=== PATIENT | female | born 1990 | race Two or more races ===

== ENCOUNTER 2024-08-29 11:03 | Outpatient (CLI) | payer MEDICAID, SELFPAY ==
[2024-08-29 11:05] VITALS: BP 137/97; PULSE 93; RESP 17; RESP 99; TEMP 36.9
[2024-08-29 11:11] VITALS: BP 139/97; PULSE 93
[2024-08-29 11:23] VITALS: BMI 23.0
[2024-08-29 11:41] VITALS: BP 133/88; PULSE 96
[2024-08-29 12:11] VITALS: BP 0/0
[2024-08-29 12:13] VITALS: BP 122/79; PULSE 100
[2024-08-29 12:21] LABS: Collection Type, Urine Clean Catch; RBC,Urine 0 /hpf (0-3); Squamous Epithelial Cell,Urine 0 /hpf (0-5)
[2024-08-29 12:25] LABS: Basophils % (Auto) 1 % (0-2.5); Eosinophils # (Auto) 0.1 Thou/mm3 (0.0-0.5); Eosinophils % (Auto) 1 % (0-10); Hematocrit 30.8 % (36.0-46.0); Hemoglobin 11.4 g/dL (12.0-16.0); Immature Granulocytes % (Auto) 1 % (0-0); Immature Granulocytes Auto 0.07 Thou/mm3 (0.00-0.00); Lymphocytes % (Auto) 16 % (10-50); Mean Corpuscular Hemoglobin 32.4 pg (25.0-35.0); Mean Corpuscular Volume 88 fL (80-100); Monocytes # (Auto) 0.5 Thou/mm3 (0.0-0.8); Monocytes % (Auto) 8 % (0-12); Neutrophils # (Auto) 4.6 Thou/mm3 (1.8-7.7); Neutrophils % (Auto) 74 % (37-80); Nucleated Red Blood Cell % 0 /100 WBC (0); Platelet Count 174 Thou/mm3 (140-440); Red Blood Count 3.52 Miln/mm3 (4.00-5.20); White Blood Count 6.3 Thou/mm3 (3.6-11.0)
[2024-08-29 12:30] LABS: Bilirubin,Urine Negative (Negative); Blood,Urine Negative (Negative); Clarity,Urine Clear (Clear/Hazy); Color,Urine Colorless (Lt Yel-Yel); Glucose, Urine Negative (Negative); Ketones,Urine Negative (Negative); Leukocyte Esterase,Urine Negative (Negative); Nitrite,Urine Negative (Negative); PH,Urine 6.5 (5.0-7.0); Protein,Urine Negative (Neg - Trace); Specific Gravity,Urine 1.001 (1.001-1.035); Urobilinogen,Urine Negative mg/dL (0.0-1.0); WBC,Urine < 1 /hpf (0-5)
[2024-08-29 12:41] VITALS: BP 125/75; PULSE 87
[2024-08-29 12:54] LABS: Fibrinogen 398 mg/dL (175-375); INR 0.9 (0.9-1.3); Partial Thromboplastin Time 26.5 Seconds (22.0-36.0); Prothrombin Time 9.8 Seconds (9.0-12.2)
[2024-08-29 12:55] LABS: Alanine Aminotransferase 7 U/L (10-49); Albumin, Serum 3.8 gm/dL (3.5-5.0); Albumin/Globulin Ratio 1.7 (1.2-2.2); Alkaline Phosphatase 131 U/L (46-116); Anion Gap 12 (7-16); BUN/Creatinine Ratio 13 Ratio (12-20); Bilirubin,Total 0.3 mg/dL (0.3-1.2); Blood Urea Nitrogen < 5 mg/dL (9-23); Calcium 8.6 mg/dL (8.3-10.6); Calcium (Corrected) 8.8 mg/dL (8.5-10.1); Carbon Dioxide 22.1 mMol/L (20.0-31.0); Chloride 106 mMol/L (98-107); Creatinine (Component) 0.4 mg/dL (0.6-1.3); Estimated Creatinine Clearance 155.3 mL/min (>60); Globulin 2.2 gm/dL (2.3-3.5); Glucose 75 mg/dL (74-106); LDH (Lactate Dehydrogenase) 188 U/L (120-246); Osmolality,Calculated 275 (275-295); Potassium 3.6 mMol/L (3.4-5.1); Sodium 140 mMol/L (136-145); Uric Acid 7.1 mg/dL (3.1-7.8); eGFR > 60 See Note
== END 2024-08-29 13:20 | disposition home or self-care (01) ==
LOC: S4S1 11:03 → S4SX 11:04 → S4NX 13:26 → S4SX 13:28
PROVIDERS: Referring Provider Student in an Organized Health Care Education/Training Program; Visit Provider Student in an Organized Health Care Education/Training Program
DX: Z34.83 Encounter for supervision of other normal pregnancy, third trimester (principal); Z36.89 Encounter for other specified antenatal screening; Z3A.38 38 weeks gestation of pregnancy
CPT/HCPCS: 36415; 59025; 80053; 81001; 83615; 84550; 85025; 85384; 85610; 85730

== ENCOUNTER 2024-09-08 01:16 | Inpatient (IN) | payer MEDICAID, SELFPAY ==
[2024-09-08] VITALS (62 sets, daily range): BP systolic 104–183; BP diastolic 62–100; PULSE 78–131; RESP 16–99; TEMP 36.8–37.1; O2SAT 97–99; BMI 23.0
--- NOTE | 2024-09-08 02:07 | ESHP_ITS ---
Documentation for date of: 09/08/24 OB Labor/Induct. HPI History of Present Illness Chief complaint: CONTRACTIONS AND FLUID LEAKAGE SINCE 22:30 : 5 Term pregnancies: 4 pregnancies: 0 Living children: 4 History of Abortions: Spontaneous and Elective: 0 History of Vaginal deliveries: 4 History of sections: No History of : No ESTRELLITA: 09/08/24 Gestational Age (weeks): 40 History of present illness: 34 YRS G-5, P-4 WITH SROM AND CONTRACTIONS. CERVIX 4 CM ON ADMISSION.. INITIAL BP 140 / 100 AND PULSE IN RANGE 119. PATIENT LAST SEEN HERE AUGUST 29 AND HAD TRANSIENT ELEVATED BP. DENIES DRUG ABUSE OR RECENT FEVER. NO HEADACHES, NO VISUAL COMPLAINTS NOR EPIGASTRIC DISRESS. ON REPEAT BP 121 / 87. DTR 2+ /4, NO CLONUS, NO PEDAL EDEMA History of Present Dating criteria: LMP confirmed by 1st trimester US Adequate Care: Yes Obstetrical complications: none Medical complications: none Labs Labs: Positive: Rubella Titre, Negative: RPR, Hepatitis B, HIV, Ch lamydia, Gonorrhea and Group Beta Strep and Unknown: Herpes Type 1, Herpes Type 2 and Covid-19 Review of Systems Constitutional Constitutional: Reports system reviewed and no additional complaints, except as documented Eyes Eyes: Reports system reviewed and no additional complaints, except as documented Cardiovascular Cardiovascular: Reports as per HPI Respiratory Respiratory: Reports system reviewed and no additional complaints, except as documented Gastrointestinal Gastrointestinal: Reports system reviewed and no additional complaints, except as documented Genitourinary Genitourinary: Reports system reviewed and no additional complaints, except as documented Musculoskeletal Musculoskeletal: Reports as per HPI Integumentary/Breasts Skin/Breast: Reports system reviewed and no additional complaints, except as documented Neurologic Neurologic: Reports system reviewed and no additional complaints, except as documented Endocrine Endocrine: Reports system reviewed and no additional complaints, except as documented Allergic/Immunologic Allergic/Immunologic: Reports system reviewed and no additional complaints, except as documented Past Medical History Family History FAMILY HISTORY: Positive Family Neurologic Problems, Family Psychiatric Problems, Family Respiratory Disorders, Family Cardiac Disorders, Family Gastrointestinal Problems, Family Genitourinary Problems, Family Endocrine Disorders, Family Reproductive Disorders, Family Musculoskeletal Disorders, Family Cancer, Family Surgery and Family Anesthesia Reaction Surgical History SURGICAL: Negative Section Social History SOCIAL: DENIES DRUG USE SUBSTANCE USE: does not use (NONE) HOUSING: Apartment LIVES WITH: Significant Other Travel History EBOLA RISK: No Meds Home Medications and Allergies Home Medications ?Medication ?Instructions ?Recorded ?Confirmed ?Type vits no.124-ferrous fum 1 tab PO QDAY 9 09/08/24 History 27 mg iron-folic acid 800 mcg tablet ( Vitamin) Allergies Allergy/AdvReac Type Severity Reaction Status Date / Time No Known Allergies Allergy Unknown Verified 09/08/24 01:44 OB Exam Physical Exam Vital signs: Pulse BP Pulse Ox 131 H 141/100 H 99 09/08/24 01:50 09/08/24 01:50 09/08/24 02:03 Narrative: WILL GET EKG, UDS FOR EVALUATION OF LABILE BP AND TACHYCARDIA Routine Respiratory Exam Comments: UNLABORED RESPIRATION Routine Cardiovascular Exam Comments: PULSE IN RANGE 100 Detailed Labor and Delivery Exam Dilation (cm): 4 CM Effacement (%): 90% Cervix position: mid station: -1 Consistency: soft Presentation: Vertex Membranes: ruptured Baseline heart rate: 130 monitor accelerations: 15x15 monitor decelerations: None buttermilk drier operator variability: Average (6-10) Contraction frequency (min): 3 TO 5 MIN Contraction duration (sec): 50 TO 60 Tachysystole: No Contraction intensity: Mild Routine Extremities Exam Extremities: Present full ROM, pulses intact and normal capillary refill Routine Back/Spine/Pelvis Exam Back/Spine: Present full ROM Routine Skin Exam Skin: Present intact Routine Neurological Exam Neurological: Present alert, oriented X3 and CN II-XII intact OB Results Impressions Impression: IN LABOR WITH SROM. LABILE BLOOD PRESSURE AND TACHYCARDIA OB Assessment & Plan Assessment and Plan (1) Tachycardia with heart rate 100-120 beats per minute: Status: Acute Additional Plan Additional Plan Comment: LAB INCLUDE UDS, EKG, TSH , CHEM PIH PANEL
[2024-09-08 02:23] LABS: Collection Type, Urine Clean Catch
[2024-09-08 02:34] LABS: Bacteria,Urine Rare; Bilirubin,Urine Negative (Negative); Blood,Urine 3+ (Negative); Clarity,Urine Turbid (Clear/Hazy); Color,Urine Lt-Yellow (Lt Yel-Yel); Glucose, Urine Negative (Negative); Ketones,Urine Negative (Negative); Leukocyte Esterase,Urine Positive (Negative); Nitrite,Urine Negative (Negative); PH,Urine 6.5 (5.0-7.0); Protein,Urine Negative (Neg - Trace); RBC,Urine 34 /hpf (0-3); Specific Gravity,Urine 1.004 (1.001-1.035); Squamous Epithelial Cell,Urine 14 /hpf (0-5); Urobilinogen,Urine Negative mg/dL (0.0-1.0); WBC,Urine 30 /hpf (0-5)
[2024-09-08 02:37] LABS: Basophils % (Auto) 0 % (0-2.5); Eosinophils # (Auto) 0.1 Thou/mm3 (0.0-0.5); Eosinophils % (Auto) 1 % (0-10); Hematocrit 32.9 % (36.0-46.0); Hemoglobin 12.2 g/dL (12.0-16.0); Immature Granulocytes % (Auto) 1 % (0-0); Immature Granulocytes Auto 0.05 Thou/mm3 (0.00-0.00); Lymphocytes # (Auto) 1.5 Thou/mm3 (1.0-4.8); Lymphocytes % (Auto) 20 % (10-50); Mean Corpuscular HGB Conc 37.1 g/dl (31.0-37.0); Mean Corpuscular Hemoglobin 32.6 pg (25.0-35.0); Mean Corpuscular Volume 88 fL (80-100); Monocytes # (Auto) 0.6 Thou/mm3 (0.0-0.8); Monocytes % (Auto) 8 % (0-12); Neutrophils % (Auto) 70 % (37-80); Nucleated Red Blood Cell % 0 /100 WBC (0); Platelet Count 197 Thou/mm3 (140-440); RDW Standard Deviation 41.4 fL (36.4-46.3); Red Blood Count 3.74 Miln/mm3 (4.00-5.20); White Blood Count 7.2 Thou/mm3 (3.6-11.0)
[2024-09-08 03:13] LABS: Fibrinogen 454 mg/dL (175-375); INR 0.9 (0.9-1.3); Prothrombin Time 10.1 Seconds (9.0-12.2)
[2024-09-08 03:17] LABS: Alanine Aminotransferase 7 U/L (10-49); Albumin/Globulin Ratio 1.7 (1.2-2.2); Alkaline Phosphatase 148 U/L (46-116); Anion Gap 12 (7-16); Aspartate Amino Transferase 16 U/L (0-34); BUN/Creatinine Ratio 8 Ratio (12-20); Bilirubin,Total 0.4 mg/dL (0.3-1.2); Blood Urea Nitrogen < 5 mg/dL (9-23); Calcium 8.8 mg/dL (8.3-10.6); Calcium (Corrected) 8.8 mg/dL (8.5-10.1); Carbon Dioxide 23.4 mMol/L (20.0-31.0); Chloride 102 mMol/L (98-107); Creatinine (Component) 0.6 mg/dL (0.6-1.3); Estimated Creatinine Clearance 103.5 mL/min (>60); Globulin 2.4 gm/dL (2.3-3.5); Glucose 112 mg/dL (74-106); Osmolality,Calculated 272 (275-295); Potassium 3.6 mMol/L (3.4-5.1); Sodium 137 mMol/L (136-145); Thyroid Stimulating Hormone 1.78 uIU/mL (0.55-4.78); Total Protein 6.4 gm/dL (5.7-8.2); Uric Acid 8.3 mg/dL (3.1-7.8); eGFR > 60 See Note
--- NOTE | 2024-09-08 03:21 | EKG_ITS ---
[facility] Test Date: 2024-09-08 Pat Name: THALIA HOOKER [facility] Gender[facility] Electrical Wiring Lineman: DICK : 1990 Requested By: Spike Hilton Order Number: [id number] Reading MD: Spike Hilton Measurements Intervals [place] Rate: 113 P: 52 IL: 131 QRS: 50 QRSD: 77 T: 8 QT: 300 QTc: 413 Interpretive Statements SINUS TACHYCARDIA NONSPECIFIC T-WAVE ABNORMALITY ABNORMAL RHYTHM ECG No previous ECG available for comparison /store/S0/[id number]/ecg/[id number].pdf
[2024-09-08 03:45] LABS: Amphetamine/Metham Scrn,Ur OB Negative (Negative); Benzoylecgonine Screen, Ur OB Negative (Negative); Creatinine,Random Urine 20 mg/dL (30-125); Opiate Screen,Urine OB Negative (Negative); Protein Total, Random Urine 19 mg/dL (1-14); THC Screen,Urine OB Negative (Negative)
[2024-09-08 03:59] LABS: Creatine Kinase 42 U/L (34-171); Troponin I < 0.002 ng/mL (0.0-0.045)
[2024-09-08] MEDS: LABETALOL 100 MG TABLET PO (03:59)
--- NOTE | 2024-09-08 04:26 | XR_ITS ---
Examination: Complete OB ultrasound greater than 14 weeks Date and time of exam: September 08, 2024 0730 hours INDICATIONS: Pelvic contractions leaking amniotic fluid today Findings: Viable intrauterine single fetus with single amniotic sac presentation Vertex Cardiac motion 131 BPM Placenta posterior grade 3 Umbilical cord insertion seen Amniotic fluid index 7.0 cm Ovaries obscured by bowel gas. Composite estimated gestational age based on BPD, head circumference, abdominal circumference, femur length is 37 weeks 0 days Estimated weight 3279.5 g. Survey of intracranial anatomy, spinal anatomy, abdominal anatomy, four-chamber heart performed with no abnormalities identified. Impression: Viable intrauterine gestation vertex presentation.
--- NOTE | 2024-09-08 05:06 | PD.LDPN ---
Documentation for date of: 09/08/24 OB Labor Progress Note Pain Control Comments: MATERNAL PULSE IN RANGE 90, EKG SHOWED SINUS TACHYCARDIA. CONTRACTIONS 5 MINUTES APART. FHR = CATEGORY ONE Pelvic Exam Dilation (cm): 4 Effacement (%): 80 station: -3 Amniotic membrane status: Ruptured Contractions Monitor mode: External Contraction frequency: 1-5 Contraction intensity: Moderate Status status: Category l Assessment and Plan Assessment: active labor Plan OB labor note: continuous present management
[2024-09-08] MEDS: RINGERS LACTATED 1000 ML 1,000 ML 100 ML IV (08:02)
[2024-09-08] MEDS: OXYTOCIN in NS 30 units 30 UNIT/500 ML BAG IV (08:22)
--- NOTE | 2024-09-08 10:14 | PD.LDPN ---
Documentation for date of: 09/08/24 OB Labor Progress Note Pelvic Exam Dilation (cm): 5 Effacement (%): 80 station: -2 Amniotic membrane status: Ruptured Contractions Monitor mode: External Contraction frequency: 2-6 Contraction intensity: Mild Status status: Category l Assessment and Plan Comments: I assumed care of June at 0700 this morning. In brief, she is a 34yo with SIUP at 40wk presenting with SROM, 4cm. Upon presentation she had tachycardia, so EKG was performed which showed sinus tachy. She also had a couple mild range bp's so PIH labs were done which were normal with exception of urine p:c 0.95, but was a dirty catch. BP's have since been normotensive with rare mild range. Pitocin was initiated and currently at 4mu. Patient comfortable. Does not desire epidural- all other labors had no pain meds. Cat I FHRT Ctx q3min SCE: 5/80/-2, clear fluid Plan to continue to titrate pitocin per protocol Continue to closely monitor CEFM Safe to proceed Norma Walsh MD
[2024-09-08] MEDS: OXYTOCIN in NS 20 units 20 UNIT/1,000 ML BAG 125 UNIT IV (11:45)
[2024-09-08] MEDS: MISOPROSTOL 200 mCg TABLET 800 MCG PR (11:50)
[2024-09-08] MEDS: METHYLERGONOVINE INJ 0.2 MG/ML VIAL IM (12:00)
[2024-09-08] MEDS: BENZO/LANO/ALOE (Dermoplast) 60 GM CAN 1 SPRAY TOP (12:05)
[2024-09-08] MEDS: IBUPROFEN TAB 400 MG TABLET 800 MG PO (12:10)
--- NOTE | 2024-09-08 12:14 | PD.LDDELS ---
Data (Ramos) Data Hx Section: No : 5 Term: 4 : 0 Livin Abortions: Spontaneous & Theraputic: 0 Delivery Data (Ramos) Labor Data Initiation of labor: Spontaneous Induction/Augmentation Agent: Pitocin ROM date: 09/08/24 ROM time: 00:40 Amniotic membrane rupture type: Spontaneous Amniotic fluid description: Clear Delivery Data Onset of labor date: 09/08/24 Onset of labor time: 10:01 Complete dilation date: 09/08/24 Complete dilation time: 11:33 Silvis delivery date: 09/08/24 delivery time: 11:43 Placenta delivery date: 09/08/24 Placenta delivery time: 11:48 Stage 1 total time: Labor - Stage 1 Duration 1 hours and 32 minutes Delivered by: joseph Delivery nurse: caden Neworn nurse: Dragan Therapy Administrative Assistant at delivery: No Support person(s) at delivery: FOB Delivery Method Delivery method: Normal Vaginal Delivery Presentation: Vertex Anesthesia Type Anesthesia Type: None Placenta Placenta delivery description: Spontaneous Cord blood sent to lab: Yes cord blood collection: Cord Blood Type Episiotomy Episiotomy description: None EBL Estimated blood loss (ml): 300 Umbilical Cord cord description: 3 Vessels Data (Ramos) Data order: 1 Silvis's gender: Female Identification band number: [id number] weight (gms): 3100 g Weight (pounds): 6 lbs and 13.3 ozs Silvis length: 52 cm 1 minute: 9 5 minutes: 9 Additional Comments Additional comments: Wendi is a 34yo [id number] s/p uncomplicated at 40&3wk after presenting with SROM, delivering at 1143 on 09/08/2024. On presentation, SCE was 4cm. She progressed with pitocin augmentation to C/C/0 at which point she began pushing. She declined epidural. With good maternal pushing efforts, 's head delivered OA and restituted ZAHEER. Left anterior shoulder delivered easily followed by posterior shoulder and corpus. had spontaneous cry and was vigorous. Apgars 9/9. placed on maternal abdomen where nose/mouth were suctioned and dried/stimulated. After approximately 1 minute, cord was clamped x2 and cut by FOB. Cord blood collected for typing. With fundal massage and cord traction, placenta delivered spontaneously and intact with 3 vessel centrally inserted cord. Bimanual massage performed and IV pitocin given per protocol with fundus then firm at u-2cm and hemostasis noted. Inspection of perineum and vagina revealed no lacerations. Small trickle of blood, so sweep just within cervix/ROSHNI performed which retrieved a small amount of clot. Bimanual massage repeated. Fundus remained firm and ROSHNI firmed up with massage. Cytotec 800mcg placed CA and methergine 0.2mg IM given with observed hemostasis after. All counts correct x2. Mom and infant were doing well when I left the room. Norma Walsh MD
--- NOTE | 2024-09-08 14:45 | PC.NURSE ---
REPORT RECEIVED FROM ABHIJEET ANGEL. PT IN BATHROOM W/ AT BEDSIDE W/ BABY.
--- NOTE | 2024-09-08 15:10 | PC.NURSE ---
IVL IN L) WRIST FLUSHED W/O DIFFICULTY OR DISCOMFORT TO PT.
[2024-09-08 18:23] LABS: Basophils % (Auto) 0 % (0-2.5); Eosinophils % (Auto) 0 % (0-10); Hematocrit 33.7 % (36.0-46.0); Hemoglobin 12.2 g/dL (12.0-16.0); Immature Granulocytes % (Auto) 0 % (0-0); Immature Granulocytes Auto 0.05 Thou/mm3 (0.00-0.00); Lymphocytes # (Auto) 1.1 Thou/mm3 (1.0-4.8); Lymphocytes % (Auto) 8 % (10-50); Mean Corpuscular HGB Conc 36.2 g/dl (31.0-37.0); Mean Corpuscular Volume 89 fL (80-100); Monocytes # (Auto) 0.9 Thou/mm3 (0.0-0.8); Monocytes % (Auto) 7 % (0-12); Neutrophils # (Auto) 11.4 Thou/mm3 (1.8-7.7); Neutrophils % (Auto) 85 % (37-80); Nucleated Red Blood Cell % 0 /100 WBC (0); Platelet Count 173 Thou/mm3 (140-440); RDW Standard Deviation 41.5 fL (36.4-46.3); Red Blood Count 3.81 Miln/mm3 (4.00-5.20); White Blood Count 13.5 Thou/mm3 (3.6-11.0)
[2024-09-08 18:42] LABS: Syphilis Nonreactive (Nonreactive)
[2024-09-08] MEDS: DOCUSATE SOD 100 MG CAPSULE PO (21:18)
[2024-09-09] VITALS: BP 117/78; PULSE 80; RESP 16; TEMP 37; O2SAT 97
[2024-09-09 04:00] VITALS: BP 123/80; PULSE 78; RESP 16; TEMP 36.8; O2SAT 98
[2024-09-09 07:20] VITALS: BP 130/84; PULSE 76; RESP 17; TEMP 36.8; O2SAT 99
[2024-09-09] MEDS: DOCUSATE SOD 100 MG CAPSULE PO (07:58)
[2024-09-09] MEDS: PRENATAL VITAMIN/FE FUM/FA TABLET 1 TAB PO (07:58)
--- NOTE | 2024-09-09 09:53 | PD.LDDS ---
DS: Providers Provider Date of admission: 09/08/24 01:46 Primary care physician: Physician No Primary/Family Admitting Provider: Spike Connelly MD Attending Provider on Admission: Norma Walsh MD Consults: 09/08/24 11:58 Referral Routine Comment: Attending Provider on DC: Azucena Easton CNM Discharging Provider: Azucena Easton CNM DS: Diagnosis Discharge Diagnosis (1) Normal labor and delivery: Status: Acute (2) Encounter for care of lactating mother: Status: Acute (3) Tachycardia with heart rate 100-120 beats per minute: Status: Acute Problem List Completed Was Problem List Reviewed/Reconciled?: Yes Summary/Hosp Course Brief History: 34 YRS G-5, P-4 WITH SROM AND CONTRACTIONS. CERVIX 4 CM ON ADMISSION.. INITIAL BP 140 / 100 AND PULSE IN RANGE 119. PATIENT LAST SEEN HERE AUGUST 29 AND HAD TRANSIENT ELEVATED BP. DENIES DRUG ABUSE OR RECENT FEVER. NO HEADACHES, NO VISUAL COMPLAINTS NOR EPIGASTRIC DISRESS. ON REPEAT BP 121 / 87. DTR 2+ /4, NO CLONUS, NO PEDAL EDEMA. 09/08/24: Wendi is a 34yo [id number] s/p uncomplicated at 40&3wk after presenting with SROM, delivering at 1143 on 09/08/2024. On presentation, SCE was 4cm. She progressed with pitocin augmentation to C/C/0 at which point she began pushing. She declined epidural. With good maternal pushing efforts, 's head delivered OA and restituted ZAHEER. Left anterior shoulder delivered easily followed by posterior shoulder and corpus. Infant had spontaneous cry and was vigorous. Apgars 9/9. placed on maternal abdomen where nose/mouth were suctioned and infant dried/stimulated. After approximately 1 minute, cord was clamped x2 and cut by FOB. Cord blood collected for typing. With fundal massage and cord traction, placenta delivered spontaneously and intact with 3 vessel centrally inserted cord. Bimanual massage performed and IV pitocin given per protocol with fundus then firm at u-2cm and hemostasis noted. Inspection of perineum and vagina revealed no lacerations. Small trickle of blood, so sweep just within cervix/ROSHNI performed which retrieved a small amount of clot. Bimanual massage repeated. Fundus remained firm and ROSHNI firmed up with massage. Cytotec 800mcg placed [place] and methergine 0.2mg IM given with observed hemostasis after. All counts correct x2. Mom and were doing well when I left the room. 09/09/24: PPD#1 patient is stable and afebrile. Doing well and . Bonding with well breast-feeding well. Denies dizziness shortness of breath. Ambulating to the bathroom voiding with no problems passing gas no bowel movement yet. No complaints. Uterus is nontender fundus firm minimal lochia. Discharge instructions given. Patient to follow-up with Obi JENKINS in 3 weeks or Azucena Easton CNM Peripartum Data Delivery Method: Normal Vaginal Delivery Episiotomy Description: None Laceration Description: no complications: none Gordon 1: Gender: Female Status at Discharge Cognitive/behavioral status at discharge: Alert and oriented x 3 Functional status at discharge: independent ambulation Overall status at discharge: patient is progressing back to baseline Time Spent with Patient Time attestation: Total time spent providing and/or coordinating discharge services: Time spent: Greater than 30 minutes Exam Vital Signs Temp Pulse Resp BP Pulse Ox O2 Del Method 98.3 F 78 16 123/80 98 Room Air 09/09/24 04:00 09/09/24 04:00 09/09/24 04:00 09/09/24 04:00 09/09/24 04:00 09/09/24 04:00 Constitutional Constitutional: no acute distress Routine HEENT Exam Head: Present normocephalic and atraumatic Eye: Present EOMI, PERRL and normal accommodation ENT: Present mucous membranes moist Routine Neck Exam Neck: Present supple, full ROM and trachea midline Routine Respiratory Exam Respiratory: Present chest non-tender, lungs clear, normal breath sounds and no resp distress Routine Cardiovascular Exam Cardiovascular: Present RRR Routine Abdominal Exam Abdominal: Present soft and normoactive bowel sounds; Absent tenderness or distended Comments: Uterus nontender Fundus firm Routine Exam Patient deferred: external exam Comments: Lochia minimal Routine Extremities Exam Extremities: Present full ROM Routine Back/Spine/Pelvis Exam Back/Spine: Present full ROM Routine Skin Exam Skin: Present intact, dry and warm Routine Neurological Exam Neurological: Present alert, oriented X3 and CN II-XII intact Routine Psychiatric Exam Psychiatric: Present normal affect and normal thought process Discharge Plan Plan Patient Disposition: HOME (Self Care) Patient condition on transfer: Stable Prescriptions/Referrals Prescriptions/Med Rec: New docusate sodium [Colace] 100 mg capsule 100 mg PO BID Qty: 60 0RF ibuprofen 600 mg tablet 600 mg PO Q6H PRN (Reason: pain) Qty: 90 0RF lanolin 50 % ointment 1 applic topical TID PRN (Reason: skin irritation) Qty: 15 0RF Continued Vitamin 27 mg iron- 800 mcg Tablet 1 tab PO QDAY Referrals: No Primary/Family,Physician [Primary Care Provider] - Patient/Caregiver Discharge Instructions Meds to Beds: No Discharge Activity: activity as tolerated Other Discharge Activity Instructions:: Schedule an appointment with your ob doctor in 3-6 weeks Education Materials: After a Vaginal , After Delivery Concerns, Breast Care After Print Language: [place] Island[place] Stand Alone Forms: Dolores Award Info., Patient Portal Info Letter Discharge Order Discharge Orders: Discharge (Routine); Ordered 09/09/24 Ordered By: Azucena Easton Planned Discharge Date 09/09/24
[2024-09-09 11:00] VITALS: BP 120/70; PULSE 73; RESP 18; TEMP 36.6; O2SAT 98
== END 2024-09-09 12:55 | disposition home or self-care (01) | DRG 560 ==
LOC: S4SX 09-09 06:24 → S4NX 09-09 06:24
PROVIDERS: Admitting Provider Obstetrics & Gynecology; Visit Provider Obstetrics & Gynecology
DX: O42.02 Full-term premature rupture of membranes, onset of labor within 24 hours of rupture (principal); O99.892 Other specified diseases and conditions complicating childbirth; R00.0 Tachycardia, unspecified; Z3A.40 40 weeks gestation of pregnancy; Z37.0 Single live birth
CPT/HCPCS: 36415; 59409; 76805; 80053; 80307; 81001; 82550; 82570; 84112; 84156; 84443; 84484; 84550; 85025; 85384; 85610; 85730; 86780; 86850; 86900; 86901; 93005; 94762; J2210; J2590; J7120; S0191; A9270